=== PATIENT | female | born 1950 | race Caucasian/White ===

== ENCOUNTER 2021-04-16 10:09 | Emergency (ER) | payer MEDICARE, OTHER ==
[~2021-04-16 10:09] MED LIST: ALLOPURINOL100 MG PO; ATENOLOL100 MG PO; COLACE100 MG PO; FEOSOL325 MG PO; HCTZ25 MG PO; LACTINEX1 EACH PO; LASIX20 MG PO; LEVAQUIN750 MG PO; LIPITOR40 MG PO; MAGNESIUM500 MG PO; MUCINEX 600MG600 MG PO; MULTIVITAMINS1 EAC1 PO; PERCOCET 5-3251 EACH PO; PROTONIX 40MG T40 MG PO; SINGULAIR10 MG PO; TRAZODONE 50MG50 MG PO; VITAMIN D1000 UNI1 PO; WELLBUTRIN100 MG PO; XARELTO10 MG PO; ZESTRIL5 MG PO
[2021-04-16] MEDS ORDERED: NORCO 5-325 TA1 EACH PO (12:57)
[2021-04-16] MEDS ORDERED: BACTRIM DS TAB1 EACH PO (15:06)
[2021-04-16] MEDS ORDERED: VIBRAMYCIN100 MG PO (15:06)
[2021-04-16] MEDS ORDERED: ONDANSETRON ODT4 MG PO (17:20)
[2021-04-17] MEDS ORDERED: BRIN10TA PO (17:37)
[2021-04-17] MEDS ORDERED: PREDNISOLO15 MG/5 ML OU (17:38)
[2021-04-17] MEDS ORDERED: WAL-ZYR10 M1 PO (17:39)
[2021-04-17] MEDS ORDERED: QUETIAPINE FUMA25 MG PO (17:40)
[2021-04-17] MEDS ORDERED: SEROQUEL 25MG T25 MG PO (17:41)
[2021-04-17] MEDS ORDERED: LOSARTAN POTASS25 MG PO (17:41)
[2021-04-21] MEDS ORDERED: COLACE100 MG PO (06:46)
== END 2021-04-16 18:52 | disposition home or self-care (01) ==
LOC: FER 10:09
DX: S52.571A Other intraarticular fracture of lower end of right radius, initial encounter for closed fracture (principal); S01.81XA Laceration without foreign body of other part of head, initial encounter; S80.11XA Contusion of right lower leg, initial encounter; I12.9 Hypertensive chronic kidney disease with stage 1 through stage 4 chronic kidney disease, or unspecified chronic kidney disease; N18.9 Chronic kidney disease, unspecified; E78.5 Hyperlipidemia, unspecified; W10.8XXA Fall (on) (from) other stairs and steps, initial encounter
CPT/HCPCS: 70450; 72125; 73110; 73560; 73590; 73610; 73630; 96365; 96372; 96375; 96376; J0696; J1170; J2270; J2405; J2550

== ENCOUNTER → 2021-04-21 | Day surgery (SDC) | payer MEDICARE, OTHER ==
[~2021-04-21] VITALS: Ht 172.7 cm; Wt 81.6 kg
[~2021-04-21] MED LIST changes: +BACTRIM DS TAB1 EACH PO; +BRIN10TA PO; +LOSARTAN POTASS25 MG PO; +NORCO 5-325 TA1 EACH PO; +ONDANSETRON ODT4 MG PO; +PREDNISOLO15 MG/5 ML OU; +QUETIAPINE FUMA25 MG PO; +SEROQUEL 25MG T25 MG PO; +VIBRAMYCIN100 MG PO; +WAL-ZYR10 M1 PO
[2021-04-21 06:53] LABS: HCT 33.2 % (37.0-47.0); HGB 10.5 g/dl (12.5-16.0); MCH 29.7 pg (25.0-31.0); MCHC 31.6 g/dL (32.0-36.0); MCV 94.1 fL (78.0-100.0); MPV 10.8 fL (6.0-9.5); RBC 3.53 M/uL (4.20-5.40); RDW 15.1 % (11.5-14.0); WBC 10.8 K/uL (4.0-10.5)
[2021-04-21 07:11] LABS: BUN/CREAT RATIO (CALC) 20.4 RATIO; CREATININE 2.16 mg/dL (0.51-0.95); POTASSIUM 4.8 mmol/L (3.5-5.1)
== END | disposition home or self-care (01) ==
LOC: FAS 06:05
PROVIDERS: Legal Medicine
DX: S52.571B Other intraarticular fracture of lower end of right radius, initial encounter for open fracture type I or II (principal); G89.18 Other acute postprocedural pain; Z90.89 Acquired absence of other organs; Z90.12 Acquired absence of left breast and nipple; Z79.899 Other long term (current) drug therapy
CPT/HCPCS: 36415; 73100; 76000; 80048; C1713; J0690; J1100; J2250; J2405; J2704; J2795; J3010; J7030; J7120

== ENCOUNTER → 2021-06-16 | Day surgery (SDC) | payer MEDICARE, OTHER ==
[~2021-06-16] VITALS: Ht 172.7 cm; Wt 82.5 kg
[2021-06-16 07:09] LABS: HCT 34.7 % (37.0-47.0); MCH 29.5 pg (25.0-31.0); MCHC 31.7 g/dL (32.0-36.0); RBC 3.73 M/uL (4.20-5.40); RDW 14.7 % (11.5-14.0); WBC 7.8 K/uL (4.0-10.5)
[2021-06-16 07:23] LABS: BUN/CREAT RATIO (CALC) 21.7 RATIO; CREATININE 1.29 mg/dL (0.51-0.95); POTASSIUM 3.9 mmol/L (3.5-5.1)
== END | disposition home or self-care (01) ==
LOC: FAS 06:08
PROVIDERS: Legal Medicine
DX: S52.501E Unspecified fracture of the lower end of right radius, subsequent encounter for open fracture type I or II with routine healing (principal); I12.9 Hypertensive chronic kidney disease with stage 1 through stage 4 chronic kidney disease, or unspecified chronic kidney disease; N18.30 Chronic kidney disease, stage 3 unspecified; E78.5 Hyperlipidemia, unspecified; K21.9 Gastro-esophageal reflux disease without esophagitis; M19.90 Unspecified osteoarthritis, unspecified site; Z88.1 Allergy status to other antibiotic agents; Z88.6 Allergy status to analgesic agent; Z79.899 Other long term (current) drug therapy; W19.XXXD Unspecified fall, subsequent encounter
CPT/HCPCS: 36415; 80048; J0690; J1170; J2250; J2405; J2704; J3010; J7120